=== PATIENT | male | born 1950 | race Caucasian/White ===

== ENCOUNTER 2016-05-01 11:45 | Emergency (ER) | payer OTHER ==
[2016-05-01] MEDS ORDERED: LORazepam 0.5 MG TABLET ONE (12:31)
--- NOTE | 2016-05-01 16:10 | ER NURSING DOCUMENTATION ---
Nurse's Notes [facility] [place] Name:Soto León Age:65 yrs Sex:Male :1950 Arrival Date:05/01/2016 Time:11:45 BedTrauma C Private MD: Diagnosis:Precordial Chest Pain;Dehydration;Anxiety Reaction Presentation: 05/01 11:51 Acuity: CHELSEA 2 tg 12:18 Presenting complaint: Patient states: From [place], hiking yesterday in [facility], sj felt anxious and SOB with right chest "twinges," "a funny feeling." Numbness and tingling in right arm. Today nauseated, still having palpitations, and noted his BP elevated this AM. Denies headache. Transition of care: Home. 12:18 Method Of Arrival: Private Vehicle sj Triage Assessment: 12:00 Respiratory: Onset: The symptoms/episode began/occurred yesterday, the patient has sj moderate shortness of breath. 12:24 General: Appears in no apparent distress, well groomed, Behavior is cooperative. Pain: sj Denies pain. Historical: - Allergies: No known drug Allergies; - Home Meds: 1. aspirin 81 mg oral tab 1 tab once daily 2. atorvastatin oral - PMHx: [place] 2013; - PSHx: 2 cardiac stents; - Tetanus: < 10 years. - Ebola Screening: : Patient negative for fever greater than or equal to 101.5 degrees Fahrenheit, and additional compatible Ebola Virus Disease symptoms. Patient denies exposure to infectious person. Patient denies travel to an Ebola-affected area in the 21 days before illness onset. No symptoms or risks identified at this time. . - Immunization history: Pneumococcal vaccine is up to date, Flu Vaccine unknown. - Social history: Smoking status: Patient states was never smoker of tobacco. Patient uses alcohol occasionally. marijuana. Screenin:34 Infectious Disease Risk None. Abuse screen:. Abuse screen: Denies threats or abuse. sj Denies injuries from another. Nutritional screening: No deficits noted. Assessment: 12:58 Neuro: Level of Consciousness is awake, alert, Oriented to person, place, time, event, sj Reports lightheadedness. Cardiovascular: Capillary refill < 3 seconds is brisk Heart tones S1 S2 Rhythm is sinus bradycardia. Respiratory: Airway is patent Respiratory effort is even, unlabored, Respiratory pattern is regular, Breath sounds are clear bilaterally. Reports shortness of breath at rest not as bad now. Vital Signs: 12:00 BP 165 / 95; Pulse 55; Resp 14; Temp 98.8(TE); Pulse Ox 93% on R/A; Weight 79.38 kg; sj Height 5 ft. 9 in. (175.26 cm); Pain 0/10; 12:45 BP 119 / 72; Pulse 45; Resp 11; Pulse Ox 94% on R/A; Pain 0/10; sj 12:00 Body Mass Index 25.84 (79.38 kg, 175.26 cm) [place] Coma Score: 12:25 Eye Response: spontaneous(4). Verbal Response: oriented(5). Motor Response: obeys cd commands(6). Total: 15. ED Course: 11:47 Patient arrived in ED. lm3 11:51 Triage completed. tg 12:02 Amy Brito is Primary Nurse. sj 12:21 Tariq Pal MD is Attending Physician. cd 12:34 Labs drawn. (by ED staff). EKG done. (by ED staff). Reviewed by Tariq Pal MD. sj Inserted peripheral IV: 20 gauge in right forearm. 12:34 Valuables Given to family. Patient has correct armband on for positive identification. sj Placed in gown. Bed in low position. Call light in reach. Side rails up X 1. residential monitor on. Pulse ox on. NIBP on. 12:40 ED physician of Notified Dr. Pal notified of troponin results. tg Administered Medications: 12:15 Drug: NS 0.9% 1000 ml; Route: IV; Rate: bolus; Site: right forearm; sj 12:49 Follow up: IV Status: Completed infusion; IV Intake: 1000ml sj 12:20 Drug: Ativan 0.5 mg; Route: PO; sj 16:10 Follow up: Response: Anxiety decreased tg Intake: 12:49 IV: 1000ml; Total: 1000ml. sj Outcome: 15:52 Discharge ordered by . cd 16:09 Discharged to home ambulatory, with family. tg 16:09 Condition: stable 16:09 Discharge Assessment: Patient awake, alert and oriented x 3. No cognitive and/or functional deficits noted. Patient verbalized understanding of disposition instructions. 16:09 Instructed on discharge instructions, follow up and referral plans. 16:09 IV D/Neftali 16:09 Patient left the ED. tg Signatures: Carlton Zaidi RN RN tg Tariq Pal MD MD cd Janzen, Sarah sj McKibbon-Moore, Lisa lm3
--- NOTE | 2016-05-01 16:10 | ER PHYSICIAN DOCUMENTATION ---
Physician Documentation [facility] [place] Name:Soto León Age:65 yrs Sex:Male :1950 Arrival Date:05/01/2016 Time:11:45 BedTrauma C Private MD: Tariq Desai Disposition: 05/01 15:51 Critical Care: not applicable. cd 16:00 Chart complete. cd Disposition: 05/01/16 15:52 Discharged to Home/Self Care. Impression: Precordial Chest Pain, Dehydration, Anxiety Reaction. - Condition is Good. - Discharge Instructions: CHEST PAIN, Noncardiac, DEHYDRATION (6y-Adult), Anguish - ANXIETY REACTION. - Medical Reconciliation form form. - Follow up: Private Physician; When: 7 - 10 days; Reason: Recheck today's complaints, Continuance of care. - Problem is new. - Symptoms are resolved. - Notes: Drink plenty of fluids, rest, limit exercise at higher elevation. Follow up with your doctor upon return to [facility]. HPI: 11:50 This 65 yrs old Male presents to ER via Private Vehicle with complaints of cd Shortness Of Breath, Chest Pain. 11:50 The patient or guardian reports chest pain that is located primarily in the substernal cd area. Onset: acutely, yesterday, and improved this morning, and no longer present. Now feels anxious and not normal for himself.. The pain radiates to the right arm, yesterday. There has been no movement of pain. Associated signs and symptoms: Pertinent positives: lightheadedness, palpitations, shortness of breath, anxiety, Pertinent negatives: abdominal pain, diaphoresis, headache, lower extremity pain, lower extremity swelling. The chest pain is described as dull. Duration: The patient or guardian reports a single episode, that is now resolved, that lasted 2 hour(s), yesterday while hiking in [place] at 9,600 feet. Risk factors for coronary artery disease include: This patient has known coronary artery disease. In 2013, patient had 2 stents placed. One in the mid-LAD and the other in the mid- Circumflex. Historical: - Allergies: No known drug Allergies; - Home Meds: 1. aspirin 81 mg oral tab 1 tab once daily 2. atorvastatin oral - PMHx: [place] 2013; - PSHx: 2 cardiac stents; - Tetanus: < 10 years. - Ebola Screening: : Patient negative for fever greater than or equal to 101.5 degrees Fahrenheit, and additional compatible Ebola Virus Disease symptoms. Patient denies exposure to infectious person. Patient denies travel to an Ebola-affected area in the 21 days before illness onset. No symptoms or risks identified at this time. . - Immunization history: Pneumococcal vaccine is up to date, Flu Vaccine unknown. - Social history: Smoking status: Patient states was never smoker of tobacco. Patient uses alcohol occasionally. marijuana. ROS: 12:25 Eyes: Negative for injury, pain, redness, discharge, blurry vision and loss of vision. cd ENT: Negative for injury, pain, epistaxis and discharge. Neck: Negative for injury, pain, stiffness and swelling. Abdomen/GI: Negative for abdominal pain, nausea, vomiting, diarrhea, constipation, distension, melena, hematochezia and hematemesis. Back: Negative for injury, pain or muscle spasms. : Negative for injury, bleeding, discharge, swelling, dysuria, frequency or urgency. MS/Extremity: Negative for injury, deformity, edema, calf tenderness, pain or coldness. Skin: Negative for injury, rash, itching and discoloration. 12:25 Neuro: Negative for headache, weakness, numbness, tingling, and seizure. cd 12:25 Constitutional: Positive for poor PO intake, Negative for chills, fever. 12:25 Cardiovascular: Positive for chest pain, palpitations, Negative for edema, orthopnea, paroxysmal nocturnal dyspnea. 12:25 Respiratory: Positive for shortness of breath, Negative for cough, hemoptysis, orthopnea, pleurisy, sputum production, wheezing. 12:25 All other systems are negative. Exam: Head/Face: Normocephalic, atraumatic. Eyes: Pupils equal round and reactive to light, extra-ocular motions intact. Lids and lashes normal. Conjunctiva and sclera are non-icteric and not injected. Cornea within normal limits. Periorbital areas with no swelling, redness, or edema. ENT: Nares patent. No nasal discharge, no septal abnormalities noted. Tympanic membranes are normal and external auditory canals are clear. Oropharynx with no redness, swelling, or masses, exudates, or evidence of obstruction, uvula midline. Mucous membranes dry Neck: Trachea midline, no thyromegaly or masses palpated, and no cervical lymphadenopathy. Supple, full range of motion without nuchal rigidity, or vertebral point tenderness. No Meningismus. 12:25 Chest/axilla: Normal chest wall appearance and motion. Nontender with no deformity. cd No lesions are appreciated. Abdomen/GI: Soft, non-tender, with normal bowel sounds. No distension or tympany. No guarding or rebound. No evidence of tenderness throughout. Back: No spinal tenderness. No costovertebral tenderness. Full range of motion. Skin: Warm, dry with normal turgor. Normal color with no rashes, no lesions, and no evidence of cellulitis. MS/ Extremity: Pulses equal, no cyanosis. Neurovascular intact. Full, normal range of motion. 12:25 Neuro: Awake and alert, GCS 15, oriented to person, place, time, and situation. Cranial nerves II-XII grossly intact. Motor strength 5/5 in all extremities. Sensory grossly intact. Cerebellar exam normal. Normal gait. 12:25 Constitutional: The patient appears alert, awake, non-diaphoretic, non-toxic, well developed, well nourished, anxious. 12:25 Cardiovascular: Rate: bradycardic, actual rate is 45 bpm, which he states is normal for him, Rhythm: regular, Pulses: no pulse deficits are appreciated, Heart sounds: normal. 12:25 Respiratory: the patient does not display signs of respiratory distress, Respirations: normal, no acute changes, Breath sounds: are normal, clear throughout. Vital Signs: 12:00 BP 165 / 95; Pulse 55; Resp 14; Temp 98.8(TE); Pulse Ox 93% on R/A; Weight 79.38 kg; sj Height 5 ft. 9 in. (175.26 cm); Pain 0/10; 12:45 BP 119 / 72; Pulse 45; Resp 11; Pulse Ox 94% on R/A; Pain 0/10; sj 12:00 Body Mass Index 25.84 (79.38 kg, 175.26 cm) [place] Coma Score: 12:25 Eye Response: spontaneous(4). Verbal Response: oriented(5). Motor Response: obeys cd commands(6). Total: 15. 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 Interpretation: normal. 12:10 Differential diagnosis: acute myocardial infarction, acute pericarditis, anxiety, cd coronary artery disease chest wall pain, pulmonary embolus, unstable angina. The patient was not given aspirin in the Emergency Department. Patient did not receive fibrinolytic due to not indicated. 12:15 DANA Risk Score: 1 - patient's age is greater or equal to 65 years, 1- Known CAD, 1 - cd ASA use in past 7 days, 1 - Recent [<24hrs] Severe Angina, TOTAL SCORE = 4. 12:21 Patient medically screened. cd 14:10 Data reviewed: vital signs, nurses notes, old medical records, lab test result(s), Two cd Troponins 2 hours apart were minimally elevated at 0.040 and 0.043. , and as a result, I will continue to observe the patient, initiate a consult, with a quality analyst, and get a Stress Echo Test. 15:50 Counseling: I had a detailed discussion with the patient and/or guardian regarding: the cd historical points, exam findings, and any diagnostic results supporting the discharge/admit diagnosis, lab results, the need for outpatient follow up, for a recheck, with the patient's primary care provider, to return to the emergency department if symptoms worsen or persist or if there are any questions or concerns that arise at home. 05/01 12:40 Order name: TROPONIN I; Complete Time: 17:33 EDVA 05/01 14:34 Order name: TROPONIN I; Complete Time: 17:33 EDVA 05/01 11:54 Order name: 12-lead EKG; Complete Time: 12:08 tg 05/01 11:54 Order name: Continuous Cardiac Monitoring; Complete Time: 12:18 tg Dispensed Medications: 12:15 Drug: NS 0.9% 1000 ml; Route: IV; Rate: bolus; Site: right forearm; 12:49 Follow up: IV Status: Completed infusion; IV Intake: 1000ml 12:20 Drug: Ativan 0.5 mg; Route: PO; sj 16:10 Follow up: Response: Anxiety decreased tg Signatures: Carlton Zaidi RN RN Tariq Pal MD MD cd Janzen, Sarah
== END 2016-05-01 16:10 | disposition home or self-care (01) ==
LOC: ER 11:45
DX: R07.2 Precordial pain (principal); E86.0 Dehydration; F41.9 Anxiety disorder, unspecified; R06.02 Shortness of breath; I25.2 Old myocardial infarction; Z95.5 Presence of coronary angioplasty implant and graft; Z79.82 Long term (current) use of aspirin; Z79.899 Other long term (current) drug therapy
CPT/HCPCS: 84484; 93005; 93351; 96360; 99284